=== PATIENT | female | born 1955 | race American Indian/Alaskan Native ===

== ENCOUNTER 2017-08-08 21:30 | Emergency (ER) | payer SELFPAY ==
--- NOTE | 2017-08-09 00:33 | Cat Scan Report ---
FINAL REPORT PROCEDURE: CT NECK WO CON TECHNIQUE: Computerized axial tomography of the soft tissue neck was performed following the IV injection of iodinated nonionic contrast. HISTORY: swollen Rt neck COMPARISON: No prior studies are available for comparison. FINDINGS: Skull and scalp: Normal. Paranasal sinuses: Normal. Nasopharynx: Normal . Oral cavity: Normal . Epiglottis/vallecula: Normal . Larynx/pyriform sinuses: Normal . Thyroid gland: Normal . Lymph nodes: There is bilateral reactive cervical lymph node hyperplasia greater on the right.. Salivary glands: The parotid glands are enlarged greater on the right. There is no discrete mass. There is no evidence of abscess. The right submandibular gland is also slightly enlarged.. Upper thorax: Normal . IMPRESSION: There is bilateral reactive cervical lymph node hyperplasia greater on the right.. The parotid glands are enlarged greater on the right. There is no discrete mass. There is no evidence of abscess. The right submandibular gland is also slightly enlarged.. Parotiditis and sialoadenitis is suspected. There is no specific evidence of cellulitis. There is no neck mass or abscess. There is no airway compromise.
--- NOTE | 2017-08-09 06:35 | Emergency Department Report ---
ED Neck Pain/Injury HPI - General Chief Complaint: Neck Pain/Injury Stated Complaint: RT NECK SWELLING Time Seen by Provider: 08/09/17 06:13 Mode of arrival: Ambulatory Limitations: No Limitations - History of Present Illness Initial Comments: 61-year-old female with no significant past medical history presents to the hospital complaints of sudden onset of right sided face/jaw swelling while eating at 9 PM. Patient denies shortness of breath, difficulty swallowing, fever, or significant pain. She describes a "golf ball size swelling" to the right side of her face that has since improved while waiting on hours to be evaluated in the ED. Patient states she has been eating a lot of different foods over the holidays. - Related Data Previous Rx's Medication Instructions Recorded Last Taken Type Clindamycin [Clindamycin CAP] 450 mg PO Q8HR 10 Days capsule 08/09/17 Unknown Rx Allergies Allergy/AdvReac Type Severity Reaction Status Date / Time No Known Allergies Allergy Unverified 08/08/17 21:49 ED Review of Systems ROS: Stated complaint: RT NECK SWELLING Other details as noted in HPI Comment: All other systems reviewed and negative Other: Constitutional: No fevers chills Eyes: No eye pain visual changes ENT: As per HPI Neck: Denies pain Respiratory: Denies cough wheezing shortness of breath Cardiovascular: Denies chest pain, palpitations, syncope GI: Denies abdominal pain, nausea, vomiting, diarrhea : Denies dysuria, urinary frequency, or urgency Musculoskeletal: Denies back pain, joint swelling Skin: Denies rash, lesions, erythema Neurologic: Denies headache, numbness, weakness Psychiatric: Denies suicidal ideation, hallucinations ED Past Medical Hx - Past Medical History Previous Medical History?: No - Surgical History Past Surgical History?: Yes Additional Surgical History: tubaligation - Social History Smoking Status: Current Every Day Smoker Substance Use Type: None - Medications Home Medications: Home Medications Medication Instructions Recorded Confirmed Last Taken Type Clindamycin [Clindamycin CAP] 450 mg PO Q8HR 10 Days capsule 08/09/17 Unknown Rx ED Physical Exam - General Limitations: No Limitations - Other Other exam information: General: No limitations, patient is alert in no acute distress Head exam: Atraumatic, normocephalic Eyes exam: Normal appearance, pupils equal reactive to light, extraocular movements intact ENT: Moist mucous membrane, normal oropharynx, no posterior pharyngeal edema. Right parotid gland swelling and nontender, no erythema or warmth Neck exam: Normal inspection, full range of motion, no meningismus nontender Respiratory exam: Clear to auscultation bilateral, no wheezes, rales, crackles Cardiovascular: Normal rate and rhythm, normal heart sounds Abdomen: Soft, nondistended, and nontender, with normal bowel sounds, no rebound, or guarding Extremity: Full range of motion normal inspection no deformity Back: Normal Inspection, full range of motion, no tenderness Neurologic: Alert, oriented x3, cranial nerves intact, no motor or sensory deficit Psychiatric: normal affect, normal mood Skin: Warm, dry, intact ED Course Vital Signs 08/08/17 08/09/17 08/09/17 21:49 02:55 03:00 Temperature 97.6 F Pulse Rate 83 85 81 Respiratory 16 15 Rate Blood Pressure 145/76 154/82 Blood Pressure [Left] O2 Sat by Pulse 97 94 94 Oximetry 08/09/17 08/09/17 08/09/17 03:07 03:11 03:12 Temperature 98 F Pulse Rate 80 79 Respiratory 12 19 12 Rate Blood Pressure 154/82 Blood Pressure 151/82 [Left] O2 Sat by Pulse 95 94 95 Oximetry 08/09/17 08/09/17 08/09/17 03:15 03:21 03:25 Temperature Pulse Rate 77 77 77 Respiratory 14 17 17 Rate Blood Pressure 148/85 148/85 148/85 Blood Pressure [Left] O2 Sat by Pulse 93 94 93 Oximetry 08/09/17 08/09/17 08/09/17 03:30 03:35 03:41 Temperature Pulse Rate 74 75 76 Respiratory 16 17 18 Rate Blood Pressure 141/85 141/85 141/85 Blood Pressure [Left] O2 Sat by Pulse 90 94 94 Oximetry 08/09/17 08/09/17 08/09/17 03:45 03:51 03:55 Temperature Pulse Rate 71 77 78 Respiratory 16 19 18 Rate Blood Pressure 141/84 141/84 141/84 Blood Pressure [Left] O2 Sat by Pulse 89 94 94 Oximetry 08/09/17 08/09/17 08/09/17 04:00 04:05 04:15 Temperature Pulse Rate 78 73 Respiratory 15 12 Rate Blood Pressure 141/89 141/89 141/89 Blood Pressure [Left] O2 Sat by Pulse 91 96 Oximetry 08/09/17 08/09/17 08/09/17 04:21 04:25 04:30 Temperature Pulse Rate 75 72 65 Respiratory 15 19 16 Rate Blood Pressure 138/80 138/80 132/85 Blood Pressure [Left] O2 Sat by Pulse 95 93 96 Oximetry 08/09/17 08/09/17 08/09/17 04:35 04:41 04:45 Temperature Pulse Rate 74 76 71 Respiratory 17 18 16 Rate Blood Pressure 132/85 132/85 130/84 Blood Pressure [Left] O2 Sat by Pulse 96 95 95 Oximetry 08/09/17 08/09/17 08/09/17 04:51 04:55 05:00 Temperature Pulse Rate 80 66 63 Respiratory 17 20 17 Rate Blood Pressure 130/84 130/84 136/79 Blood Pressure [Left] O2 Sat by Pulse 94 92 95 Oximetry 08/09/17 08/09/17 08/09/17 05:05 05:11 05:15 Temperature Pulse Rate 72 68 67 Respiratory 16 17 16 Rate Blood Pressure 136/79 136/79 127/81 Blood Pressure [Left] O2 Sat by Pulse 92 95 94 Oximetry 08/09/17 08/09/17 05:21 05:25 Temperature Pulse Rate 72 72 Respiratory 17 19 Rate Blood Pressure 127/81 127/81 Blood Pressure [Left] O2 Sat by Pulse 97 95 Oximetry - Reevaluation(s) Reevaluation #1: 08/09/17 06:33 Swelling spontaneously improved in the ED without intervention ED Medical Decision Making - Radiology Data Radiology results: report reviewed CT neck without contrast: Bilateral reactive cervical lymph node hyperplasia greater on the right. Parotid glands are enlarged. Her on the right. There is no discrete mass. No evidence of abscess. Right submandibular gland is also slightly enlarged. Parotiditis and sialoadenitis is suspected. No evidence of cellulitis, mass, abscess, or airway compromise. - Medical Decision Making Plan to treat for parotiditis and sialadenitis. Patient is nontoxic appearing. - Differential Diagnosis sialadenitis, parotiditis, abscess, cellulitis Critical Care Time: No Critical care attestation.: If time is entered above; I have spent that time in minutes in the direct care of this critically ill patient, excluding procedure time. ED Disposition Clinical Impression: Parotiditis, Sialoadenitis Disposition: - TO HOME OR SELFCARE Is pt being admited?: No Does the pt Need Aspirin: No Condition: Stable Instructions: Parotid Duct Obstruction (ED), Sialoadenitis (ED) Additional Instructions: Follow-up with your primary care doctor and/or ENT doctor within 3-5 days. Return if symptoms worsen. Prescriptions: Clindamycin [Clindamycin CAP] 450 mg PO Q8HR 10 Days capsule Referrals: PRIMARY CARE, [Primary Care Provider] - 3-5 Days MICHELLE YOUNG MD [Staff Physician] - 3-5 Days Time of Disposition: 06:39
[2017-08-09 06:39] VITALS: BP 123/63
== END 2017-08-09 07:13 | disposition home or self-care (01) ==
LOC: ED 21:30
DX: K11.20 Sialoadenitis, unspecified (principal); F17.200 Nicotine dependence, unspecified, uncomplicated
CPT/HCPCS: 70490